=== PATIENT | female | born 1980 | race Caucasian/White ===

== ENCOUNTER 2017-01-18 13:50 | Outpatient (CLI) | payer BC ==
--- NOTE | 2017-01-18 15:42 | Ultrasound Report ---
LEFT BREAST ULTRASOUND: 01/18/2017 CLINICAL INDICATION: Palpable abnormality. TECHNIQUE: Real-time scanning was performed with call center representative static images obtained. FINDINGS: Ultrasound of the palpable abnormality at the 8 o'clock position of the left breast was pe rformed. At this site, there is a homogeneously hyperechoic 2.5 x 2.2 x 1.4 cm nodule, with no inter nal vascularity and circumscribed margins, compatible with a lipoma. No sonographically suspicious f indings are appreciated. IMPRESSION: BENIGN FINDINGS. RECOMMENDATION: Routine annual screening, to commence at age 40, unless otherwise clinically indicat ed. BIRADS CATEGORY 2 - BENIGN FINDINGS. JOB #: [id number] EXT JOB #:
--- NOTE | 2017-01-18 15:50 | Mammography Report ---
DIGITAL DIAGNOSTIC BILATERAL MAMMOGRAM: 01/18/2017 CLINICAL INDICATION: Palpable abnormality left breast, baseline examination. TECHNIQUE: Bilateral CC, MLO, true lateral, right spot magnification views. FINDINGS: The breasts demonstrate scattered fibroglandular densities bilaterally. At the site of th e palpable abnormality, in the left lower inner anterior breast, no mammographic abnormality is appre ciated. In the right lower, slightly inner posterior breast, there is a cluster of calcifications. On spot magnification views, the calcifications appear mildly pleomorphic. No associated mass is stephanie ntified. Biopsy is recommended. The calcifications appear amenable to stereotactic sampling. Pleas e also refer to left breast ultrasound of the same day. IMPRESSION: SUSPICIOUS ABNORMALITY, WITH MILDLY PLEOMORPHIC CALCIFICATIONS IN THE RIGHT LOWER INNER POSTERIOR BREAST. RECOMMENDATION: Biopsy. The calcifications appear amenable to stereotactic biopsy. BIRADS CATEGORY 4 - SUSPICIOUS ABNORMALITY. Results and recommendations discussed with the patient at the time of the examination, and called to the office of Dr. Burnett on 01/18/2017. Biopsy will be coordinated with [facility]. STANDARD QUALIFYING STATEMENTS 1. This examination was reviewed with the aid of Computer-Aided Detection (CAD). 2. A negative or benign imaging report should not delay biopsy if clinically suspicious findings are present. Consider surgical consultation if warranted. More than 5% of cancers are not identified by i maging. 3. Dense breasts may obscure an underlying neoplasm. JOB #: [id number] EXT JOB #:[id number]
== END 2017-01-18 13:51 | disposition home or self-care (01) ==
LOC: DI 13:50
PROVIDERS: ATTEND Family Medicine
DX: N63.24 Unspecified lump in the left breast, lower inner quadrant (principal); R92.1 Mammographic calcification found on diagnostic imaging of breast
CPT/HCPCS: 76642; 77066